=== PATIENT | female | born 1985 | race Caucasian/White ===

== ENCOUNTER 2016-08-15 09:09 | Outpatient (CLI) | payer MEDICARE, OTHER ==
[2016-04-05 17:00] VITALS: O2SAT 99
== END 2016-08-15 09:10 | disposition home or self-care (01) | DRG 554 ==
LOC: CONVCARE 09:09
PROVIDERS: ATTEND Orthopaedic Surgery
DX: M94.261 Chondromalacia, right knee (principal); M22.8X1 Other disorders of patella, right knee
CPT/HCPCS: 73564

== ENCOUNTER 2018-04-30 00:04 | Observation (INO) | payer MEDICARE, OTHER ==
[2018-04-30] MEDS ORDERED: ONDANSETRON HCL 4 MG/2 ML SOL IV ONE (00:16)
[2018-04-30] MEDS ORDERED: ONDANSETRON HCL 4 MG/2 ML SOL ONE (00:24)
[2018-04-30] MEDS ORDERED: SODIUM CHLORIDE 0.9% 1000ML 1,000 ML IV SCH ×2 (00:30→08:00)
[2018-04-30 00:47] LABS: CALCIUM 8.8 mg/dl (8.5-10.1); CARBON DIOXIDE 21.2 mEq/L (21-32); CREATININE 0.81 mg/dl (0.60-1.00); POTASSIUM 3.3 mMol/L (3.5-5.1)
[2018-04-30 00:50] LABS: HEMATOCRIT 43 % (35-47); HEMOGLOBIN 14.5 gm/dl (12.0-15.5); MEAN CORPUSCULAR HEMOGLOBIN 32.1 pg (27.0-32.0); MEAN CORPUSCULAR HGB CONC 33.6 gm/dl (32.0-36.0); MEAN CORPUSCULAR VOLUME 96 fL (81-99)
[2018-04-30 01:02] LABS: NEUTROPHILS % (MANUAL) 81 % (37-80)
[2018-04-30 01:03] LABS: BAND NEUTROPHILS % (MANUAL) 0 %; BASOPHILS % (MANUAL) 0 % (0-3); EOSINOPHILS % (MANUAL) 0 % (0-9); LYMPHOCYTES % (MANUAL) 12 % (10-50); MONOCYTES % (MANUAL) 7 % (0-12); NORMAL RBCS PRESENT
[2018-04-30] MEDS ORDERED: PROMETHAZINE HYDROCHLORIDE 25 MG/ML SOL IV PRN (01:17)
[2018-04-30] MEDS ORDERED: POTASSIUM CHLORIDE 2 MEQ/ML 60 MEQ, LIDOCAINE HCL 1% MDV 2 ML in SODIUM CHLORIDE 0.9% 1... IV ONE (01:17)
[2018-04-30] MEDS ORDERED: LORAZEPAM 0.5 MG TAB PO PRN (01:18)
[2018-04-30] MEDS ORDERED: POTASSIUM CHLORIDE 2 MEQ/ML SOL IV ONE (01:37)
[2018-04-30 01:38] VITALS: PULSE 109
[2018-04-30] MEDS ORDERED: LIDOCAINE HCL 1% MPF 30 SOL ONE (01:48)
[2018-04-30] MEDS: SODIUM CHLORIDE 0.9% FLUSH 10 ML SOL IV SCH ×3 (03:15→12:23)
[2018-04-30 08:34] VITALS: BP 110/78; RESP 16; TEMP 97.1; O2SAT 95
[2018-04-30] MEDS ORDERED: PANTOPRAZOLE SODIUM 40 MG ECT PO SCH (09:00)
[2018-04-30] MEDS ORDERED: OMEPRAZOLE 20 MG CAPSULE PO SCH (09:00)
[2018-04-30] MEDS ORDERED: ONDANSETRON HCL 4 MG/2 ML SOL IV PRN (12:35)
[2018-04-30] MEDS ORDERED: DIPHENHYDRAMINE 50 MG/ML SOL IV PRN (12:48)
== END 2018-04-30 15:54 | disposition left against medical advice (07) | DRG 392 ==
LOC: ED 00:04 → ACUTE CARE 01:13
PROVIDERS: ADMIT Family Medicine; ATTEND Family Medicine
DX: K52.9 Noninfective gastroenteritis and colitis, unspecified (principal); E87.6 Hypokalemia; R19.7 Diarrhea, unspecified; Z53.21 Procedure and treatment not carried out due to patient leaving prior to being seen by health care provider
CPT/HCPCS: 36415; 80048; 84132; 85007; 85027; 96365; 96374; 99225; 99283; J2405; J2550; J3480; A9270-GY; J2001